=== PATIENT | male | born 1940 | race Caucasian/White ===

== ENCOUNTER 2021-01-27 09:48 | Observation (INO) ==
--- NOTE | 2021-01-02 14:41 | PAT Medication Instructions ---
Medication Instructions Date of Service January 02, 2021 Home Medications acetaminophen [Tylenol Extra Strength] 1,000 mg PO Q6H PRN ascorbic acid (vitamin C) 500 mg PO QAM atorvastatin 20 mg PO QAM calcium carbonate-vit D3-min [Calcium 600 + Minerals] 1 tab PO QAM esomeprazole magnesium [Nexium] 40 mg PO QPM finasteride 5 mg PO QAM lactobacillus combination no.4 [Probiotic] 3,000 mmu cells PO QPM lisinopril 5 mg PO QAM meloxicam 15 mg PO QAM metformin 1,000 mg PO BID multivitamin 1 tab PO QAM omega 9-exs-ikv-fish oil [Fish Oil] 1 cap PO QAM tamsulosin 0.4 mg PO BID ASK your surgeon for instructions meloxicam 15 mg PO QAM STOP taking 2 weeks before surgery (or as soon as possible if surgery is within 2 weeks) omega 2-ukt-src-fish oil [Fish Oil] 1 cap PO QAM DO NOT take the morning of surgery ascorbic acid (vitamin C) 500 mg PO QAM calcium carbonate-vit D3-min [Calcium 600 + Minerals] 1 tab PO QAM lisinopril 5 mg PO QAM metformin 1,000 mg PO BID multivitamin 1 tab PO QAM Take morning of surgery With a small sip of water, OTHERWISE NOTHING TO EAT OR DRINK AFTER MIDNIGHT: acetaminophen [Tylenol Extra Strength] 1,000 mg PO Q6H PRN (okay to take up to 4 hours prior to surgery if needed) atorvastatin 20 mg PO QAM finasteride 5 mg PO QAM tamsulosin 0.4 mg PO BID Take evening before surgery acetaminophen [Tylenol Extra Strength] 1,000 mg PO Q6H PRN (if needed) esomeprazole magnesium [Nexium] 40 mg PO QPM lactobacillus combination no.4 [Probiotic] 3,000 mmu cells PO QPM metformin 1,000 mg PO BID tamsulosin 0.4 mg PO BID Other Notes If you have any questions please call us at [phone] or [phone] or [phone] or [phone]
--- NOTE | 2021-01-03 14:51 | Anesthesiology Consultation ---
Date of Service January 03, 2021 Assessment & Plan (1) Encounter for pre-operative examination: Chart Review Chart Review: Acceptable Risk for Surgery (pending PCP clearance and preop Covid testing results ) and Patient seen in Pre Admission Testing Awaiting PCP clearance 01/05/21 - Check BSG AM DOS Per PAT appt on 01/03/21, pt resides in [facility]. Travels to [facility] for medical appts. Wears mask, uses good hand hygiene and socially distances. No known Covid positive contacts or Covid related symptoms. Pt denies any Covid infection in the past 90 days. Preop Covid testing scheduled 01/24/21 at [facility]= will await results. Educated on importance of self quarantining, social distancing and wearing mask in public both for the patient after Covid testing done. Pt fully vaccinated (09/10/20 and 10/08/20). Last seen by cardio 12/11/19= history of previous catheterization March 2018. Had been doing well from health standpoint but recently was sitting at dinner table and suddenly passed out. Denies any chest pain/pressure/heaviness/tightness. Carotid Doppler subsequently performed at hospital on 12/08/2019negative for plaquing/stenosis. Recent EKG showed sinus rhythm within normal limits. Patient on Metformin for diabetesno indication of hypoglycemia. 2-week ZIO monitor and echocardiogram ordered. Consider EEG in the future. Phone note by cardiology 01/05/2020 = per Dr. Estrada-aubrey function normal. No changes. ZIOno evidence of rhythm problems which would cause passing out. Would like him to have a EEG to rule seizure disorder. However does not want to have EEG at this time. He will call us back if he changes his mind. (Pt has had no episodes of syncope since 11/2019.) (Next routine follow up with cardio January 2021) Teaching & Discussion Pre-Anesthesia Teaching/Discussion Notes: Instructed NPO after midnight before surgery,except medications with 15 cc of water. Medication instructions provided according to the PAT guidelines. History Surgery Operation Date: 01/27/21 09:15 Proposed Procedures p Left Total Knee Arthroplasty - Jeremias Clinton DO Height/Weight Height: 5 ft 11 in Weight: 87.8 kg Allergies Allergy/AdvReac Type Severity Reaction Status Date / Time tramadol AdvReac Unknown BODY SHAKES Verified 01/02/21 10:13 Medications Home Medications Medication Instructions Recorded Confirmed Last Taken acetaminophen [Tylenol Extra 1,000 mg PO Q6H PRN 01/02/21 01/02/21 Unknown Strength] ascorbic acid (vitamin C) 500 mg PO QAM 01/02/21 01/02/21 Unknown atorvastatin 20 mg PO QAM 01/02/21 01/02/21 Unknown calcium carbonate-vit D3-min 1 tab PO QAM 01/02/21 01/02/21 Unknown [Calcium 600 + Minerals] esomeprazole magnesium [Nexium] 40 mg PO QPM 01/02/21 01/02/21 Unknown finasteride 5 mg PO QAM 01/02/21 01/02/21 Unknown lactobacillus combination no.4 3,000 mmu cells PO QPM 01/02/21 01/02/21 Unknown [Probiotic] lisinopril 5 mg PO QAM 01/02/21 01/02/21 Unknown meloxicam 15 mg PO QAM 01/02/21 01/02/21 Unknown metformin 1,000 mg PO BID 01/02/21 01/02/21 Unknown multivitamin 1 tab PO QAM 01/02/21 01/02/21 Unknown omega 3-lyw-sow-fish oil [Fish Oil] 1 cap PO QAM 01/02/21 01/02/21 Unknown tamsulosin 0.4 mg PO BID 01/02/21 01/02/21 Unknown Past Medical History Medical History (Updated 01/04/21 @ 10:38 by Laine Cosme PA-C) Anxiety Arthritis CAD (coronary artery disease) 50-60% diffuse disease LAD Cardiac murmur HX 40-50 YRS AGO Per patient- murmur resolved. No significant murmur noted on 01/03/21 PAT exam Depression Diabetes mellitus, type 2 Glucose well controlled Enlarged prostate GERD (gastroesophageal reflux disease) Well controlled and stable Hiatal hernia Hyperlipidemia Hypertension Lyme disease DX'D 3 YRS AGO-TREATED AT THE TIME- HAD ASSOCIATED BELLS PALSY GETS OCC FATIGUE Short-term memory loss SOB (shortness of breath) on exertion Stroke 5-6 YRS AGO-NUMBNESS LEFT SIDE-WEAKNESS REMAINS,SHORT TERM MEMORY LOSS Exercise / Class Metabolic Activity III < 4 Walking/Shop/Light housework (ONE FLIGHT OF STAIRS - NO CHEST PAIN, MILD SOB) Past Family History Family History Mother Family history of esophageal cancer Past Surgical History Surgical History (Updated 01/04/21 @ 14:20 by Laine Cosme PA-C) History of appendectomy History of back surgery NO METAL History of cardiac cath 2017 [facility]-DR LEO YING-NO STENTS History of carpal tunnel release R/L History of colonoscopy History of esophagogastroduodenoscopy (EGD) History of total shoulder replacement RIGHT Past Anesthesia History No Hx of Anesthesia Complications and No Family Hx of Anesthesia Complications History of PONV No Hx of PONV and No Hx of Motion Sickness Social History Smoking Status: Former smoker Do You Dip or Chew Tobacco: No Smoking End Date: QUIT 30 YRS AGO Hx Alcohol Use: No Hx Substance Use: No Review of Systems Chronic cough and wheezing- ongoing- usually in the morning stable. VAZQUEZ- chronic/stable Hx of snoring and witnessed apnea- pt refuses sleep study Patient denies chest pain, shortness of breath, palpitations. No hx of seizures, [place]. No hx of blood clots or blood transfusions Physical Exam Vital Signs VITALS BP 145/71 P 72 TEMP 97.9 SP02 96% RESP 16 Constitutional no acute distress ENMT Mouth: no TMJ clicking Thyromental Distance: > or= 3.5 Finger Breadths (3.5) Mallampati Class: II Missing molars Pernmanent bottom front bridge. Neck + limited neck extension (significant ) Respiratory normal respiratory effort; no respiratory distress Auscultation: lungs clear to auscultation bilaterally; no wheezes Cardiovascular Rate/Rhythm: regular rate and regular rhythm Heart Sounds: no murmur Vessels: no carotid bruit Musculoskeletal Spine: + pain with cervical ROM (mild to moderate ) Extremities: extremities normal to inspection Psychiatric Orientation: alert Lab Results Anesthesia Preop Results Results Anesthesia Widget: WBC 7.72 K/uL (4.8-10.8) 01/03/21 Hgb 13.3 g/dL (14.0-18.0) L 01/03/21 Hct 38.0 % (42-52) L 01/03/21 Plt 196 K/uL (130-400) 01/03/21 Na 139 mmol/L (136-145) 01/03/21 K 4.3 mmol/L (3.5-5.1) 01/03/21 Cl 107 mmol/L (98-107) 01/03/21 CO2 26 mmol/L (21-32) 01/03/21 BUN 23 mg/dl (7-18) H 01/03/21 Creat 1.17 mg/dl (0.6-1.4) 01/03/21 Glucose Level 116 mg/dl (70-99) H 01/03/21 PT 10.3 Seconds (9.0-12.0) 01/03/21 PTT 26.5 Seconds (21.0-31.0) 01/03/21 INR 1.0 (0.9-1.1) 01/03/21 HA1c 6.6 % (4.5-5.6) H 01/03/21 Urine Color Yellow 01/03/21 Urine Appearance Clear (Clear) 01/03/21 Urine pH 5.0 (4.5-7.5) 01/03/21 Urine Specific [place] 1.012 (1.000-1.030) 01/03/21 Urine Protein Negative (Negative) 01/03/21 Urine Glucose (UA) Negative (Negative) 01/03/21 Urine Ketones Negative (Negative) 01/03/21 Urine Blood Negative (Negative) 01/03/21 Urine Nitrite Negative (Negative) 01/03/21 Urine Bilirubin Negative (Negative) 01/03/21 Urine Urobilinogen Negative (Negative) 01/03/21 Urine Leukocyte Esterase Negative (Negative) 01/03/21 Blood Type O Positive 01/03/21 Antibody Screen NEGATIVE 01/03/21 Testing Electrocardiogram Date: 12/08/20 Findings: + NSR @ (72bpm) Incomplete RBBB. Chest X-Ray Date: 01/03/21 Findings: + NAD and + cardiomegaly (mild) Calcified nodules within the lungs are noted. This mild cardiomegaly without evidence for pulmonary edema. No consolidation to suggest pneumonia. Right shoulder arthroplasty is partially imaged. Echocardiogram Date: 11/30/19 EF: 68% Other Findings: + diastolic dysfunction (Grade 1) LV size normal with borderline increased wall thickness and LVH, early. There is hyperdynamic LVEF around 68%; however it was 56% on previous study. Dilated aortic root 4.3 cmcorrelate clinically. Normal pulmonary artery pressure. No pericardial effusion is seen. Cardiac Catheterization Date: 04/14/18 LM = patent right LAD = moderate 50-60% diffuse disease distal LAD Circumflex = minimal distal plaquing RCA = patent throughout LV: Normal, EF 60% Other Testing Zio Monitor 12/11/2019 = minimum heart rate 46 bpm, maximal heart rate 214 bpm, and average heart rate of 75 bpm. Predominant underlying rhythm was sinus rhythm. 52 supraventricular tachycardia runs occurred, the run with the fastest interval lasting 1 hour and 24 minutes with a max rate of 214 bpm (average 129 bpm); the run with the fastest interval was also the longest. Some episodes of supraventricular tachycardia may be possible atrial tachycardia with rare variable block, isolated SVEs were rare (<1.0%), SVC couplets were rare (<1.0%), and SVE triplets were rare (<1.0%). Isolated VE's were rare (<1.0%), VE couplets were rare (<1.0%), and no VE triplets were present. Carotid Doppler 12/07/2019 = no plaque or stenosis
--- NOTE | 2021-01-26 14:14 | History & Physical Report ---
Date of Service January 26, 2021 Assessment & Plan (1) Osteoarthritis of left knee: Schedule a Left TKA for 01.27.21. All potential risks, benefits, complications, alternatives, and rehab have been discussed with the patient and he wishes to proceed. Plan for ASA 81 mg BID x 4 wks for post op DVT prophylaxis. History of Present Illness Chief Complaint: left knee pain Primary Care Provider: Ramiro Chatman This is a patient with chronic left knee pain that has been treated for many years as knee osteoarthritis. He has failed conservative management and has chronic, persistent pain in the knee. He is now being set up for surgical management. Allergies Allergy/AdvReac Type Severity Reaction Status Date / Time tramadol AdvReac Unknown BODY SHAKES Verified 01/02/21 10:13 Home Medications Medication Instructions Recorded Confirmed Type acetaminophen [Tylenol Extra 1,000 mg PO Q6H PRN 01/02/21 01/02/21 History Strength] ascorbic acid (vitamin C) 500 mg PO QAM 01/02/21 01/02/21 History atorvastatin 20 mg PO QAM 01/02/21 01/02/21 History calcium carbonate-vit D3-min 1 tab PO QAM 01/02/21 01/02/21 History [Calcium 600 + Minerals] esomeprazole magnesium [Nexium] 40 mg PO QPM 01/02/21 01/02/21 History finasteride 5 mg PO QAM 01/02/21 01/02/21 History lactobacillus combination no.4 3,000 mmu cells PO QPM 01/02/21 01/02/21 History [Probiotic] lisinopril 5 mg PO QAM 01/02/21 01/02/21 History meloxicam 15 mg PO QAM 01/02/21 01/02/21 History metformin 1,000 mg PO BID 01/02/21 01/02/21 History multivitamin 1 tab PO QAM 01/02/21 01/02/21 History omega 0-ikz-ypu-fish oil [Fish Oil] 1 cap PO QAM 01/02/21 01/02/21 History tamsulosin 0.4 mg PO BID 01/02/21 01/02/21 History Past Med/Surg History Medical History (Updated 01/26/21 @ 14:09 by Trey Gutiérrez PA-C) Anxiety Arthritis CAD (coronary artery disease) 50-60% diffuse disease LAD Cardiac murmur HX 40-50 YRS AGO Per patient- murmur resolved. No significant murmur noted on 01/03/21 PAT exam Depression Diabetes mellitus, type 2 Glucose well controlled Enlarged prostate GERD (gastroesophageal reflux disease) Well controlled and stable Hiatal hernia Hyperlipidemia Hypertension Lyme disease DX'D 3 YRS AGO-TREATED AT THE TIME- HAD ASSOCIATED BELLS PALSY GETS OCC FATIGUE Short-term memory loss SOB (shortness of breath) on exertion Stroke 5-6 YRS AGO-NUMBNESS LEFT SIDE-WEAKNESS REMAINS,SHORT TERM MEMORY LOSS Surgical History (Updated 01/04/21 @ 14:20 by Laine Cosme PA-C) History of appendectomy History of back surgery NO METAL History of cardiac cath [address] [place] [address]-DR LEO YING-NO STENTS History of carpal tunnel release R/L History of colonoscopy History of esophagogastroduodenoscopy (EGD) History of total shoulder replacement RIGHT Family History Mother Family history of esophageal cancer Social History (Updated 01/02/21 @ 10:50 by Aga Barrera RN) Smoking Status: Former smoker Second Hand Exposure: Yes (FATHER SMOKED); Hx Alcohol Use: No Hx Substance Use: No Preferred Language: Tamazight Communication Ability: Effective Clinical Partner Required: No Beliefs That Will Affect Care: None Current Living Situation: Spouse current occupational status: retired Feels Safe at Home: Yes Assistive Devices: Cane, Glasses and Hearing Aid - Bilateral Physical Exam Constitutional: well developed and well nourished; no acute distress ENMT: external ear and nose normal, oropharynx normal Neck: trachea midline, no thyromegaly Respiratory: normal respiratory effort, lungs clear to auscultation Cardiovascular: Rate/Rhythm: regular rate and regular rhythm Gastrointestinal (Abdomen): normal bowel sounds, soft, nontender, no hepatosplenomegaly Musculoskeletal: Knee: + knee ROM with crepitation (left), + joint line tenderness (left medial/lateral joint line) and + Vasyl's sign positive (left); no skin erythema, no ecchymosis, no valgus laxity and no varus laxity Skin: no rashes, warm and dry Trauma: no evidence of skin trauma Neurologic: normal touch/pain/proprioception Psychiatric: A+Ox3, euthymic affect Speech: normal rate/rhythm/volume of speech Lymphatic: no cervical or axillary lymphadenopathy
[~2021-01-27 09:48] MED LIST: ACETAMINOPHEN 500 MG TAB PO SCH; BUPIVACAINE 0.5 % 5 MG/1 ML PF 10ML VIAL ONE; CeleBREX 200 MG CAP PO SCH; EPINEPHrine INJ 1 MG/ML AMP ONE; FAMOTIDINE 20 MG TAB PO SCH; GABAPENTIN 300 MG CAP PO SCH; LR 500ML BOLUS, THEN 15ML/HR IV SCH; METOCLOPRAMIDE HCL 10 MG TABLET PO SCH; ROPIVACAINE 0.5% 5 MG/ML 30 ML VIAL ONE; ROPIVACAINE 0.5% HCL/PF 150 MG, BUPIVACAINE 0.75% MPF 20 ML, EPINEPHrine 30MG/30ML (OR ... INFIL SCH; TRANEXAMIC ACID 1,000 MG **IV Intra-op IV SCH; TRANEXAMIC ACID 1,000 MG **IV Pre-op IV SCH; ceFAZolin 2000MG 2,000 MG/15 ML SYR IV SCH; oxyCODONE HCL 10 MG TABCR (OxyCONTIN) PO SCH
--- NOTE | 2021-01-27 12:15 | History & Physical Bridge Note ---
Date of Service January 27, 2021 History & Physical Bridge Note I have examined the patient, reviewed the History & Physical and in the interval since the performance of the History & Physical I have noted the following changes of clinical significance: no changes noted
[2021-01-27] MEDS ORDERED: fentaNYL citrate 100 MCG/2 ML VIAL ONE (13:17)
[2021-01-27] MEDS ORDERED: MIDAZOLAM HCL 1 MG/ML 2ML VIAL ONE (13:17)
[2021-01-27] MEDS ORDERED: BUPIVACAINE 0.25% 30 ML VIAL ONE (13:22)
[2021-01-27] MEDS ORDERED: KETAMINE 50 MG/5 ML SYRINGE ONE (13:38)
[2021-01-27] MEDS ORDERED: GLYCOPYRROLATE 0.2 MG/ML VIAL ONE (13:39)
[2021-01-27] MEDS ORDERED: ORTHO JOINT ANESTHETIC ONE (13:39)
[2021-01-27] MEDS ORDERED: ONDANSETRON INJ 2 MG/ML 2 ML VIAL ONE ×2 (13:39→14:31)
[2021-01-27] MEDS ORDERED: LIDOCAINE 2% 2 ML VIAL/AMP(20MG/ML) INFIL ONE (13:39)
[2021-01-27] MEDS ORDERED: DEXAMETHASONE SOD INJ 4 MG/ML VIAL ONE (13:39)
[2021-01-27] MEDS ORDERED: PROPOFOL IV EMULSION 10 MG/ML 20 ML VIAL IV ONE (13:39)
[2021-01-27] MEDS ORDERED: ONDANSETRON INJ 2 MG/ML 2 ML VIAL IV PRN ×2 (14:23→18:22)
[2021-01-27] MEDS ORDERED: ATROPINE SULFATE 0.1 MG/ML 10ML SYR IV PRN (14:23)
[2021-01-27] MEDS ORDERED: fentaNYL citrate 100 MCG/2 ML VIAL IV PRN (14:23)
[2021-01-27] MEDS ORDERED: ePHEDrine sulfate 50 MG/ML AMP IV PRN (14:23)
--- NOTE | 2021-01-27 16:17 | Post Operative Brief Note ---
Immediate Post Op Note v1 Date of Surgery January 27, 2021 Pre & Post Diagnosis Operation Date: 01/27/21 11:55 Pre-Op Diagnosis: Osteoarthritis Left Knee, left knee degenerative joint disease, left knee pain Post-Op Diagnosis: Osteoarthritis Left Knee, left knee degenerative joint disease, left knee pain I identified the patient and participated in the time-out.: Yes Procedure Operation Date: 01/27/21 11:55 Actual Procedures p Left Total Knee cemented arthroplasty with Zuñiga & Nephew size 7 Oxinium fem oral component, tibial baseplate, 35 mm patella and a posterior stabilized 10 mm polyethylene insert (Left) - Jeremias Clinton DO Surgeon Jeremias Clinton DO Threshing Operator Trey Gutiérrez PA-C Estimated Blood Loss 5 Findings Consistent with Post-Op Diagnosis Specimens Bone and tissue left knee Drains Hemovac Drain (Hemovac x2) Anesthesia Type Spinal MAC Complications none Disposition Accompanied Patient To Recovery: No Disposition: Recovery Room
--- NOTE | 2021-01-27 17:14 | Anesthesiology Progress Note ---
Date of Service January 27, 2021 Anesthesia Post Procedure Vital Signs Vital Signs: Temp Pulse Pulse Resp BP Pulse Ox 01/27/21 17:10 63 12 127/69 97 01/27/21 17:00 64 13 142/75 H 95 01/27/21 16:52 36.1 C L 74 10 L 132/66 95 01/27/21 10:38 37.0 C 84 18 166/92 H 99 Transfer of Care Handoff Completed per policy Notes Mental Status: alert / awake / arousable and participated in evaluation Nausea / Vomiting: adequately controlled Pain: adequately controlled Airway Patency, RR, SpO2: stable & adequate BP & HR: stable & adequate Hydration State: stable & adequate Neuraxial Anesthesia: was administered and sensory block is resolving Anesthetic Complications: no major complications apparent and Pt Satisfied with anesthetic care
--- NOTE | 2021-01-27 17:54 | XRay Report ---
LEFT KNEE 2 VIEWS History: Left total knee arthroplasty. Degenerative arthritis. Postop. FINDINGS: The patient is status post a left total knee arthroplasty. The hardware is intact. No fract ure or dislocation. Skin kimberly and surgical drains are in place. IMPRESSION: Left total knee arthroplasty. No evidence for hardware complication. ACT 112: Negative or not required by law. Electronically signed by: Ángel Kinney M.D. 01/27/2021 5:53 PM
--- NOTE | 2021-01-27 18:03 | Operative Report (OR) ---
PREOPERATIVE DIAGNOSES: 1. Left knee osteoarthritis. 2. Left knee degenerative joint disease. 3. Left knee pain. POSTOPERATIVE DIAGNOSES: 1. Left knee osteoarthritis. 2. Left knee degenerative joint disease. 3. Left knee pain. PROCEDURE: Left total knee arthroplasty using a Zuñiga and Nephew MRI matched Oxinium femoral component, size 7. A size 6 tibial baseplate, 35 mm patella and a 10 mm posterior stabilized polyethylene. SURGEON: Jeremias Clinton DO. COLLECT ON DELIVERY CLERK: Trey Gutiérrez PA-C, who was present for patient positioning, sterile prep and drape, management of retractors and instruments. He was present through the critical portions of the case including wound closure, application of sterile dressing and transport of the patient to recovery. ANESTHESIA: Spinal regional with intra-articular local. SPECIMENS: Bone and tissue, left knee. DRAINS: Hemovac x2. COMPLICATIONS: None. BLOOD LOSS: 5 mL. PERTINENT HISTORY: This is an 80-year-old gentleman who has had chronic progressive and worsening left knee pain and deformity over the last 2 to 3 years. He has attempted and failed conservative management including physician- directed home exercises, physical therapy, shoe wear modification, anti- inflammatories, rest, modification of activities, observation, steroid injections, viscosupplementation and use of a brace and an assistive device. He has failed all measures. Radiographs demonstrate end-stage degenerative arthritis with [id number] arthropathy of the medial compartment with marginal osteophytes, subchondral sclerosis, and subchondral bone cyst formation. He has slight varus deformity. The patient was scheduled for surgery as indicated. All potential risks, benefits, alternatives, complications, alternatives, rehab potential for incomplete relief of symptoms, need for further surgery, DVT, PE, , persistent pain, swelling, scarring, weakness, neurovascular injury, wound complications, hardware failure, nonunion, malunion, bone fracture were discussed with the patient. The patient decided to proceed with the procedure as indicated. PROCEDURE: The patient was taken to the Operative Suite and placed supine on the operating table after spinal epidural was initiated. Next, tourniquet was placed high on the left thigh over cast padding and the patient was sedated. The left lower extremity was then sterilely prepped and draped in the usual fashion. It was elevated and exsanguinated with an Esmarch bandage and tourniquet inflated to 350 mmHg. Next, a 10-blade scalpel incision was made along the anterior midline of the left knee with incision deep through the subcutaneous tissue. Meticulous hemostasis was utilized with electrocautery. Full thickness skin flaps were developed both medially and laterally and 10-blade scalpel was used to make a median parapatellar incision in the extensor. The patella was everted and soft tissue releases were performed. The medial collateral was noted to be slightly tight so this was partially released using pie-crusting technique and the Roth elevator was placed from the posterior aspect of the capsule releasing any contracture. Next, the patella was everted and resurfaced using sagittal saw and orthogonal cuts. After caliper measured 25 mm, residual patella was approximately 15 mm and 35 mm button trial was placed and then drilled. Next, the appropriate retractors were placed and the femoral patient matched cutting block was pinned to the distal aspect of the femur. The distal femoral cut was made and pinned with pins and the distal femoral cutting guide was removed. The 4-in-1 cutting block was then pinned in place and anterior, posterior, anterior chamfer, and posterior chamfer cuts were made. Block and bone fragments were then removed followed by exposure of the proximal tibia. Sharp Hohmann was used to place just posterior to the tibia to protract it. Medial and lateral sharp Hohmann's were placed to protect the soft tissue and the tibial cutting block was then pinned in place. Tibial alignment anne was utilized to confirm alignment and the proximal tibia was then cut made with sagittal saw. Fragment was removed. The Size 6 tibial trial was pinned in place and circumferential proximal release was performed with electrocautery around the proximal tibia. Next, the femoral trial was placed within appropriate medial and lateral alignment and then the cutting block was then put into place. It was reamed and box cut was performed. Excess debris was removed from the femoral notch. The insert was placed into the distal aspect of the femur. Trial poly Size 10 mm was placed in the proximal tibia. The knee was reduced. Trial poly Size 35 mm was placed in the patella. The knee was reduced. Excellent alignment and range of motion was achieved with correction of the genu varum and flexion contracture was achieved. Next, all components were removed. The Orthomix was injected into the posterior capsule and anterior aspect of the capsule. Next, the wound was lavaged with pulsatile lavage and all surfaces were suctioned and dried. Palacos-G cement was placed in the distal femur, proximal tibia, patella, and then a small amount was placed in the canal of the tibia. All implants were impacted into place in a stable fashion. Excess cement was removed from the joint. The patellar button was cemented and clamped in place. After sufficient drying time elapsed a 10-Luxembourgish double lumen Hemovac drain was placed in the anterolateral aspect of the knee. The extensor mechanism was closed using interrupted #1 Vicryl. The dermis was closed using buried interrupted 2-0 Vicryl. The skin was closed with skin kimberly. Sterile compressive dressing from the toes to the groin was applied. The tourniquet was released. The patient was awakened and taken to the Recovery Room in stable condition. Job ID: [id number] [email or web address]
[2021-01-27] MEDS ORDERED: METOCLOPRAMIDE HCL INJ 5 MG/ML 2 ML VIAL IV PRN (18:22)
[2021-01-27] MEDS ORDERED: HYDROmorphone INJ 0.5 MG/0.5 ML SYR IV PRN (18:22)
[2021-01-27] MEDS ORDERED: oxyCODONE HCL IR 5 MG TAB (IMMEDIATE RELEASE) PO PRN (18:22)
[2021-01-27] MEDS ORDERED: ALUMINUM/MAGNESIUM SUSP 30 ML UDC PO PRN (18:22)
[2021-01-27] MEDS ORDERED: diphenhydrAMINE Capsule 25 MG CAP PO PRN (18:22)
[2021-01-27] MEDS ORDERED: MAGNESIUM HYDROXIDE SUSP 30 ML UDC PO PRN (18:22)
[2021-01-27] MEDS ORDERED: bisacodyL 10 MG SUPP PR PRN (18:22)
[2021-01-27] MEDS ORDERED: NALOXONE HCL 0.4 MG/1 ML VIAL/CARP IV PRN (18:22)
[2021-01-27] MEDS ORDERED: KETOROLAC TROMETHAMINE 15 MG/ML VIAL IV PRN (18:22)
[2021-01-27] MEDS: SODIUM CHLORIDE 0.9% 1000ML 1,000 ML IV SCH (18:44)
[2021-01-27] MEDS ORDERED: GLUCAGON FOR INJ 1 MG VIAL SQ PRN (19:33)
[2021-01-27] MEDS ORDERED: GLUCOSE 40% GEL 15 GM TUBE PO PRN (19:33)
[2021-01-27] MEDS ORDERED: CARBOHYDRATES FOR HYPOGLYCEMIA PO PRN (19:33)
[2021-01-27] MEDS ORDERED: DEXTROSE 50% 50 ML SYRINGE IV PRN (19:33)
[2021-01-27] MEDS ORDERED: GLUCOSE 10 TABS/TUBE PO PRN (19:33)
[2021-01-27] MEDS: TAMSULOSIN HCL 0.4 MG CAP PO SCH (21:24)
[2021-01-27] MEDS: SENNA 8.6 MG TAB PO SCH (21:24)
[2021-01-27] MEDS: DOCUSATE SODIUM 100 MG CAP PO SCH (21:24)
[2021-01-27] MEDS: PANTOprazole 40 MG TAB PO SCH (21:25)
[2021-01-27] MEDS: ASPIRIN 81 MG ECTAB PO SCH (21:25)
[2021-01-27] MEDS: ACETAMINOPHEN 500 MG TAB PO SCH (21:25)
[2021-01-27] MEDS: ADVANCED PROBIOTIC 1250 MG CAPSULE PO SCH (21:25)
[2021-01-27] MEDS: INSULIN ASPART 100 UNITS/ML 3 ML PEN SC SCH (21:26)
[2021-01-27] MEDS: ceFAZolin 2000MG 2,000 MG/15 ML SYR IV SCH (21:41)
[2021-01-28] MEDS: SODIUM CHLORIDE 0.9% 1000ML 1,000 ML IV SCH (04:56)
[2021-01-28] MEDS: ceFAZolin 2000MG 2,000 MG/15 ML SYR IV SCH (05:17)
[2021-01-28] MEDS: ACETAMINOPHEN 500 MG TAB PO SCH ×3 (05:18→21:29)
[2021-01-28 06:02] LABS: Hematocrit (blood only) 32.4 % (42-52); Hemoglobin 11.6 g/dL (14.0-18.0); Mean Corpuscular Hemoglobin 34.4 pg (25-34); Mean Corpuscular Hgb Conc 35.8 g/dL (32-36); Mean Corpuscular Volume 96.1 fL (80-100); Mean Platelet Volume 10.3 fL (7.4-10.4); Platelet Count 203 K/uL (130-400); RDW Coefficient of Variation 11.9 % (11.5-14.5); RDW Standard Deviation 41.8 fL (36.4-46.3); Red Blood Count 3.37 M/uL (4.7-6.1); White Blood Count 10.92 K/uL (4.8-10.8)
[2021-01-28 06:24] LABS: BUN Creatinine Ratio 18.6 (10-20); Calcium 8.2 mg/dl (8.5-10.1); Creatinine Clr Calc Pharmacy 41.6 ml/min; Est GFR (African American) 49.8 ml/min; Potassium 4.7 mmol/L (3.5-5.1)
--- NOTE | 2021-01-28 07:54 | Hospitalist Consultation ---
Date of Consultation January 28, 2021 Assessment & Plan (1) Elevated serum creatinine: (2) Osteoarthritis of left knee: POD1 s/p LEFT TKA Dr Clinton on 01/27. EBL WBC 10.9k but steroids operatively Hgb/hct 11.6/32.4 with KAREN output 325cc and currently needs emptied again (11am, previously emptied ~6am) --acute blod loss anemia from surgery and dilutional from IVF Hold fish oil PT/OT/pain control/bowel regimen per primary service DVT Proph with ASA 81mg BID Cr up to 1.51 post-op --> held AM lisinopril. [place] little lightheaded and low BP. Ordered IVF NS @ 80cc/hr and can repeat BMP this afternoon. If improved and BP stable can make recs to hold metformin +/- lisinopril for tomorrow vs resum ing if stable and Cr resolved Discussed with PA from ortho and will repeat labs this afternoon and hope to get patient home as he had stay at local hotel and would like to go home. IF output increased, would keep overnight. (3) CAD (coronary artery disease): Follows [facility] Cardiology Cath 2018 with diffuse disesae as outlined in HPI Continue ASA (increased to BID for DVT proph as above), Atorvastatin 20mg daily. Not on BB but does have hx syncope No CP reported. EKG c CP (4) Diabetes mellitus, type 2: A1c well controlled Holding metformin while inpatient --> ordered to start in AM if Cr stable but will d/c while on ISS inpatient ISS while inpatient, tightened parameters as ordered by overnight team Continue to monitor BSGs See above regarding holding this for a day possible at d/c due to Cr 1.5 (5) Hypertension: Low -- likely post-op. Held AM lisinopril as above Monitor BP/Cr function on repeat BMP Resume when able (6) Stroke: Prior hx -- continues ASA/statin No focal deficits appreciated above baseline (7) GERD (gastroesophageal reflux disease): Continue PPI (8) Hyperlipidemia: continue statin (9) DVT prophylaxis: ASA 81mg BID, [place] Dispo: possible dc this evening vs tomorrow (more likely in AM given hemovac output) Thank you for allowing hospitalist to participate in the care of Mr. Chopra. Hospitalist service will follow along while inpatient. Please call with any questions/concerns or recommendations if planning for d/c this evening if drain output decreases. History of Present Illness Reason for Consultation: medical management Requesting Physician: Dr Clinton Attending Physician: Jeremias Clinton DO History of Present Illness 80yo male with PMHx significant for CAD (cardiac cath 2018 diffuse disease involving terminal/distal LAD 50-60%), DM II (non-insulin dependent), HTN, HLD, GERD, CVA (5-6 years ago with L sided numbness L side), OA presented for elective LEFT TOTAL KNEE with Dr. Clinton. Patient evaluated POD1 in room 306. Was slightly lightheaded this morning but improved since he has been up and around. Pain rated as "none". Hemovac with decent output and he notes this is determination for discharge today vs tomorrow as it has been emptied twice, most recently around 6AM and already almost needing emptied again. Discussed elevated creatinine and will hold his AM lisinopril 5mg and instructed to hold his metformin for tomorrow if plans for d/c this afternoon. Will discuss with Trey Gutiérrez as patient states he was in this morning and awaiting to hear back about d/c. Eating/drinking no issues. Did well with therapy. Hopeful for d/c this afternoon as stayed at local hotel. No fever, chills, chest pain, shortness of breath, abdominal pain, nausea, vomiting or dysuria at this time. Questions/concerns addressed at this time. Allergies Allergy/AdvReac Type Severity Reaction Status Date / Time tramadol AdvReac Mild BODY SHAKES Verified 01/27/21 10:33 Home Medications Medication Instructions Recorded Confirmed Type acetaminophen [Tylenol Extra 1,000 mg PO Q6H PRN 01/02/21 01/27/21 History Strength] ascorbic acid (vitamin C) 500 mg PO QAM 01/02/21 01/27/21 History atorvastatin 20 mg PO QAM 01/02/21 01/27/21 History calcium carbonate-vit D3-min 1 tab PO QAM 01/02/21 01/27/21 History [Calcium 600 + Minerals] esomeprazole magnesium [Nexium] 40 mg PO QPM 01/02/21 01/27/21 History finasteride 5 mg PO QAM 01/02/21 01/27/21 History lactobacillus combination no.4 3,000 mmu cells PO QPM 01/02/21 01/27/21 History [Probiotic] lisinopril 5 mg PO QAM 01/02/21 01/27/21 History meloxicam 15 mg PO QAM 01/02/21 01/27/21 History metformin 1,000 mg PO BID 01/02/21 01/27/21 History multivitamin 1 tab PO QAM 01/02/21 01/27/21 History omega 0-pmh-gor-fish oil [Fish Oil] 1 cap PO QAM 01/02/21 01/27/21 History tamsulosin 0.4 mg PO BID 01/02/21 01/27/21 History acetaminophen 1,000 mg PO Q8 #100 tab 01/28/21 Rx aspirin 81 mg PO BID #60 tab 01/28/21 Rx oxycodone 5 - 10 mg PO Q4H PRN #20 tab 01/28/21 Rx Patient History Medical History Anxiety Arthritis CAD (coronary artery disease) 50-60% diffuse disease LAD Cardiac murmur HX 40-50 YRS AGO Per patient- murmur resolved. No significant murmur noted on 01/03/21 PAT exam Depression Diabetes mellitus, type 2 Glucose well controlled Enlarged prostate GERD (gastroesophageal reflux disease) Well controlled and stable Hiatal hernia Hyperlipidemia Hypertension Lyme disease DX'D 3 YRS AGO-TREATED AT THE TIME- HAD ASSOCIATED BELLS PALSY GETS OCC FATIGUE Short-term memory loss SOB (shortness of breath) on exertion Stroke 5-6 YRS AGO-NUMBNESS LEFT SIDE-WEAKNESS REMAINS,SHORT TERM MEMORY LOSS Surgical History History of appendectomy History of back surgery NO METAL History of cardiac cath 2017 [facility]-DR LEO YING-NO STENTS History of carpal tunnel release R/L History of colonoscopy History of esophagogastroduodenoscopy (EGD) History of total shoulder replacement RIGHT Family History Mother Family history of esophageal cancer Social History Smoking Status: Former smoker Smoking End Date: QUIT 30 YRS AGO; Second Hand Exposure: Yes (FATHER SMOKED); Do You Dip or Chew Tobacco: No; Hx Alcohol Use: No Hx Substance Use: No Preferred Language: Slovenian Communication Ability: Effective Chief Of Surgery Required: No Beliefs That Will Affect Care: None Current Living Situation: Spouse current occupational status: retired Other Information That Helps Us Care for You: No Feels Safe at Home: Yes Safety Concerns: Feels Safe At This Time Assistive Devices: Walker Assistive Devices Comment: CANE PRN Review of Systems Review of Systems: All systems reviewed & are unremarkable except as noted in HPI & below Physical Exam Constitutional: well developed and well nourished; no acute distress Eyes: + anicteric sclerae and PERRL ENMT: external ear and nose normal, oropharynx normal Neck: trachea midline, no thyromegaly Respiratory: normal respiratory effort, lungs clear to auscultation Cardiovascular: Rate/Rhythm: regular rate and regular rhythm Vessels: no JVD Extremities: no calf tenderness and no edema Gastrointestinal (Abdomen): normal bowel sounds, soft, nontender, no hepatosplenomegaly Musculoskeletal: Knee: + surgical incision (Leonard bandage and dressing to L knee intact) and + surgical drain present (Hemovac drain 350 cc); no skin erythema and no ecchymosis Skin: warm, dry Neurologic: deep tendon reflexes 2+ bilaterally and moves all extremities Psychiatric: A+Ox3, euthymic affect Speech: normal rate/rhythm/volume of speech Lymphatic: no cervical or axillary lymphadenopathy Results & Data Results & Data ([facility]) Vital Signs (Past 12 Hours) Vital Signs Temp Pulse Resp BP Pulse Ox 01/28/21 07:34 36.5 C 89 20 108/66 93 01/28/21 05:15 94 01/28/21 02:27 36.4 C L 63 17 131/67 95 01/27/21 21:30 36.4 C L 60 16 152/74 H 98 01/27/21 20:05 36.4 C L 62 16 144/76 H 97 Laboratory Results 01/28/21 01/28/21 01/28/21 Range/Units 08:07 05:23 05:23 WBC 10.92 H (4.8-10.8) K/uL RBC 3.37 L (4.7-6.1) M/uL Hgb 11.6 L (14.0-18.0) g/dL Hct 32.4 L (42-52) % MCV 96.1 (80-100) fL MCH 34.4 H (25-34) pg MCHC 35.8 (32-36) g/dL RDW Std Deviation 41.8 (36.4-46.3) fL RDW Coeff of Adriana 11.9 (11.5-14.5) % Plt Count 203 (130-400) K/uL MPV 10.3 (7.4-10.4) fL Sodium 137 (136-145) mmol/L Potassium 4.7 (3.5-5.1) mmol/L Chloride 107 (98-107) mmol/L Carbon Dioxide 26 (21-32) mmol/L Anion Gap 4.0 (3-11) BUN 28 H (7-18) mg/dl Creatinine 1.51 H (0.6-1.4) mg/dl Est Cr Clr Drug Dosing 41.6 ml/min Est GFR ( Amer) 49.8 ml/min Est GFR (Non-Af Amer) 43.0 ml/min BUN/Creatinine Ratio 18.6 (10-20) Glucose 215 H (70-99) mg/dl POC Glucose 208 H (70-99) mg/dl Calcium 8.2 L (8.5-10.1) mg/dl 01/27/21 01/27/21 01/27/21 Range/Units 20:54 18:23 16:54 WBC (4.8-10.8) K/uL RBC (4.7-6.1) M/uL Hgb (14.0-18.0) g/dL Hct (42-52) % MCV (80-100) fL MCH (25-34) pg MCHC (32-36) g/dL RDW Std Deviation (36.4-46.3) fL RDW Coeff of Adriana (11.5-14.5) % Plt Count (130-400) K/uL MPV (7.4-10.4) fL Sodium (136-145) mmol/L Potassium (3.5-5.1) mmol/L Chloride (98-107) mmol/L Carbon Dioxide (21-32) mmol/L Anion Gap (3-11) BUN (7-18) mg/dl Creatinine (0.6-1.4) mg/dl Est Cr Clr Drug Dosing ml/min Est GFR ( Amer) ml/min Est GFR (Non-Af Amer) ml/min BUN/Creatinine Ratio (10-20) Glucose (70-99) mg/dl POC Glucose 234 H 179 H 145 H (70-99) mg/dl Calcium (8.5-10.1) mg/dl Diagnostic Findings Knee X-Ray 01/27/21 16:54 LEFT KNEE 2 VIEWS History: Left total knee arthroplasty. Degenerative arthritis. Postop. FINDINGS: The patient is status post a left total knee arthroplasty. The hardware is intact. No fracture or dislocation. Skin kimberly and surgical drains are in place. IMPRESSION: Left total knee arthroplasty. No evidence for hardware complication. ACT 112: Negative or not required by law. Electronically signed by: Ángel Kinney M.D. 01/27/2021 5:53 PM PG Care Time/CCT Total # of Minutes Spent Total Time Spent with Patient: Total time spent is greater than 50% in co ordination of care (as documented) at patient's floor/unit and/or counseling patient: Coding Level of Care Code 90300 Office/OBS Consult Lvl 3 Diagnoses Elevated serum creatinine R79.89 Osteoarthritis of left knee M17.12 CAD (coronary artery disease) I25.10 Diabetes mellitus, type 2 E11.9 Hypertension I10 Stroke I63.9 GERD (gastroesophageal reflux disease) K21.9 Hyperlipidemia E78.5 DVT prophylaxis Z29.9
--- NOTE | 2021-01-28 08:27 | Orthopedic Progress Note ---
Date of Service January 28, 2021 Assessment & Plan (1) Osteoarthritis of left knee: Postop day #1 status post left TKA. PT/OT DVT prophylaxisTED stockings and aspirin 81 mg twice daily We discussed the drainage from the Hemovac. He would like to go home today. So, we will leave the drain in until 1600 and plan for removal at that time and discharged later this evening. If the drainage increases significantly, he will stay another day. Discharge planningplan for home with home health over the next 2 weeks then transition to outpatient physical therapy. Admission and Anticipated Discharge Date Admission Date: January 27, 2021 Supervising Physician Co-Signing Physician Notes Patient seen and examined. Agree with RAVINDER Gutiérrez's note as above. Patient is doing extremely well after his knee replacement. Ambulating in the hallway and is able to do steps. However, unfortunately his Hemovac drain output remains high. It was just emptied this morning and the canister is already full. We will have to wait until his Hemovac drain output drops off prior to discharge. We will see how it trends throughout the day. Possible discharge later today versus tomorrow. Subjective Doing well. States he has some lateral knee pain when he was ambulating last night but otherwise he is pain-free. Denies chest pain, shortness of breath, lightheadedness. Physical Exam Constitutional: well developed and well nourished; no acute distress ENMT: external ear and nose normal, oropharynx normal Neck: trachea midline, no thyromegaly Respiratory: normal respiratory effort, lungs clear to auscultation Cardiovascular: Rate/Rhythm: regular rate and regular rhythm Gastrointestinal (Abdomen): normal bowel sounds, soft, nontender, no hepatosplenomegaly Musculoskeletal: Knee: + surgical incision (Leonard bandage in place left knee. Silverlon dressing in place.), + surgical drain present (His drain 325 cc) and + knee ROM with crepitation (left); no skin erythema and no ecchymosis Skin: no rashes, warm and dry Trauma: no evidence of skin trauma Neurologic: normal touch/pain/proprioception Psychiatric: A+Ox3, euthymic affect Speech: normal rate/rhythm/volume of speech Lymphatic: no cervical or axillary lymphadenopathy Results & Data ([facility]) Vital Signs (Past 12 Hours) Vital Signs Temp Pulse Resp BP Pulse Ox 01/28/21 07:34 36.5 C 89 20 108/66 93 01/28/21 05:15 94 01/28/21 02:27 36.4 C L 63 17 131/67 95 01/27/21 21:30 36.4 C L 60 16 152/74 H 98 Laboratory Results Laboratory Tests 01/28/21 01/28/21 05:23 05:23 Hgb 11.6 L Hct 32.4 L Creatinine 1.51 H
[2021-01-28] MEDS ORDERED: MULTIVITAMIN TAB PO SCH (09:00)
[2021-01-28] MEDS ORDERED: lisinopril 5 MG TAB PO SCH (09:00)
[2021-01-28] MEDS ORDERED: OMEGA-3 (PURIFIED FISH OIL) 1 GM CAP PO SCH (09:00)
[2021-01-28] MEDS: INSULIN ASPART 100 UNITS/ML 3 ML PEN SC SCH ×4 (09:02→21:33)
[2021-01-28] MEDS: MULTIVITAMIN TAB PO SCH (09:08)
[2021-01-28] MEDS: CALCIUM 600MG + VIT D 400 IU TAB PO SCH (09:08)
[2021-01-28] MEDS: ATORVASTATIN 20 MG TAB PO SCH (09:08)
[2021-01-28] MEDS: ASCORBIC ACID 500 MG TAB PO SCH (09:08)
[2021-01-28] MEDS: DOCUSATE SODIUM 100 MG CAP PO SCH ×2 (09:08→21:30)
[2021-01-28] MEDS: ASPIRIN 81 MG ECTAB PO SCH ×2 (09:08→21:30)
[2021-01-28] MEDS: FINASTERIDE 5 MG TAB PO SCH (09:08)
[2021-01-28] MEDS: TAMSULOSIN HCL 0.4 MG CAP PO SCH ×2 (09:08→21:29)
[2021-01-28] MEDS ORDERED: SODIUM CHLORIDE 0.9% 1000ML 1,000 ML IV SCH (09:45)
[2021-01-28 15:35] LABS: BUN Creatinine Ratio 19.4 (10-20); Calcium 8.3 mg/dl (8.5-10.1); Creatinine Clr Calc Pharmacy 39.5 ml/min; Est GFR (African American) 46.8 ml/min; Est GFR (Non-African American) 40.4 ml/min; Potassium 4.7 mmol/L (3.5-5.1)
[2021-01-28] MEDS ORDERED: INSULIN HUMAN NPH SC ONE (18:05)
[2021-01-28] MEDS ORDERED: CeleBREX 200 MG CAP PO SCH (21:00)
[2021-01-28] MEDS: SENNA 8.6 MG TAB PO SCH (21:29)
[2021-01-28] MEDS: ADVANCED PROBIOTIC 1250 MG CAPSULE PO SCH (21:30)
[2021-01-28] MEDS: PANTOprazole 40 MG TAB PO SCH (21:32)
[2021-01-29] MEDS: ACETAMINOPHEN 500 MG TAB PO SCH ×2 (05:45→13:20)
[2021-01-29 05:50] LABS: Hematocrit (blood only) 27.9 % (42-52); Hemoglobin 9.8 g/dL (14.0-18.0); Mean Corpuscular Hemoglobin 33.8 pg (25-34); Mean Corpuscular Hgb Conc 35.1 g/dL (32-36); Mean Corpuscular Volume 96.2 fL (80-100); Mean Platelet Volume 10.1 fL (7.4-10.4); Platelet Count 178 K/uL (130-400); RDW Coefficient of Variation 12.4 % (11.5-14.5); RDW Standard Deviation 43.1 fL (36.4-46.3); White Blood Count 9.14 K/uL (4.8-10.8)
[2021-01-29 06:23] LABS: BUN Creatinine Ratio 19.4 (10-20); Calcium 8.2 mg/dl (8.5-10.1); Creatinine Clr Calc Pharmacy 46.5 ml/min; Est GFR (African American) 57.1 ml/min; Est GFR (Non-African American) 49.2 ml/min; Potassium 4.3 mmol/L (3.5-5.1)
[2021-01-29] MEDS ORDERED: metFORMIN HCL 500 MG TAB PO SCH (08:00)
--- NOTE | 2021-01-29 08:04 | Orthopedic Progress Note ---
Date of Service January 29, 2021 Assessment & Plan (1) Osteoarthritis of left knee: Postop day #2 status post left TKA. PT/OT DVT prophylaxisTED stockings and aspirin 81 mg twice daily The Hemovac drainage has decreased. We will remove the Hemovac today. His creatinine has also improved today. Discharge planningplan for home with home health over the next 2 weeks then transition to outpatient physical therapy. Admission and Anticipated Discharge Date Admission Date: January 27, 2021 Supervising Physician Co-Signing Physician Notes Patient seen and examined. Agree with RAVINDER Gutiérrez's note as above. Patient currently complaining of right knee pain after a fairly intense therapy session, but is overall doing well. Hemovac drain output is decreased. Plan for discharge home today. Subjective Doing well. States he does not have any pain within the knee. He was ambulating well last evening. Denies chest pain, shortness of breath, lightheadedness. Physical Exam Constitutional: well developed and well nourished; no acute distress ENMT: external ear and nose normal, oropharynx normal Neck: trachea midline, no thyromegaly Respiratory: normal respiratory effort, lungs clear to auscultation Cardiovascular: Rate/Rhythm: regular rate and regular rhythm Gastrointestinal (Abdomen): normal bowel sounds, soft, nontender, no hepatosplenomegaly Musculoskeletal: Knee: + surgical incision (Leonard bandage in place left knee. Silverlon dressing in place.) and + surgical drain present (Drain has decreased. 75 cc at previous empty.); no skin erythema and no ecchymosis Skin: no rashes, warm and dry Trauma: no evidence of skin trauma Neurologic: normal touch/pain/proprioception Psychiatric: A+Ox3, euthymic affect Speech: normal rate/rhythm/volume of speech Lymphatic: no cervical or axillary lymphadenopathy Results & Data ([facility]) Vital Signs (Past 12 Hours) Vital Signs Temp Pulse Resp BP Pulse Ox 01/28/21 22:10 36.6 C 72 16 139/66 94 Laboratory Results Laboratory Tests 01/29/21 01/29/21 05:26 05:26 Hgb 9.8 L Hct 27.9 L Creatinine 1.35
--- NOTE | 2021-01-29 08:09 | Discharge Summary ---
Date of Service January 29, 2021 Admission HPI Per Admitting Provider This is a patient with chronic left knee pain that has been treated for many years as knee osteoarthritis. He has failed conservative management and has chronic, persistent pain in the knee. He is now being set up for surgical management. Principal Diagnosis Left knee osteoarthritis Discharge Exam Constitutional well developed and well nourished; no acute distress ENMT external ear and nose normal, oropharynx normal Neck trachea midline, no thyromegaly Respiratory normal respiratory effort, lungs clear to auscultation Cardiovascular Rate/Rhythm: regular rate and regular rhythm Gastrointestinal (Abdomen) normal bowel sounds, soft, nontender, no hepatosplenomegaly Musculoskeletal Knee: + surgical incision (Leonard bandage in place left knee. Silverlon dressing in place.) and + surgical drain present (Drain has decreased. 75 cc at previous empty.); no skin erythema and no ecchymosis Skin no rashes, warm and dry Trauma: no evidence of skin trauma Neurologic normal touch/pain/proprioception Psychiatric A+Ox3, euthymic affect Speech: normal rate/rhythm/volume of speech Lymphatic no cervical or axillary lymphadenopathy Discharge Data Allergies Allergy/AdvReac Type Severity Reaction Status Date / Time tramadol AdvReac Mild BODY SHAKES Verified 01/27/21 10:33 Consultations 01/24/21 11:48 Consult Hospitalist Routine Procedures Performed Operation Date: 01/27/21 11:55 Actual Procedures p Left Total Knee Arthroplasty(Left) - Jeremias Clinton DO Ordered Studies 01/27/21 05:00 US - OR guided needle placemen Routine Hospital Course (1) Osteoarthritis of left knee: The patient was admitted and underwent the noted procedure. On postop day #1, he was doing extremely well. However, his Hemovac drainage remained high. His creatinine was slightly elevated. His IV fluids were increased. And, on postop day #2, his creatinine had improved. His Hemovac drainage had also lessened over the evening and night. He was then discharged home on postop day #2. Postop day #2 status post left TKA. PT/OT DVT prophylaxisTED stockings and aspirin 81 mg twice daily The Hemovac drainage has decreased. We will remove the Hemovac today. His creatinine has also improved today. Discharge planningplan for home with home health over the next 2 weeks then transition to outpatient physical therapy. Total Time Total Time Spent Total Time Spent (In Minutes): 45 Total Time Includes: Examination of the Patient, Discharge Planning, Medication Reconciliation and Communication With Other Providers Discharge Plan Discharge Items Patient Disposition: Home - Home Health Services Reason For Visit: Osteoarthritis Left Knee Discharge Diagnosis: Left knee osteoarthritis Activity: Per Instructions section Weightbearing: Full weightbearing Non-emergency contact: Surgeon Call non-emergency contact if: your pain is not controlled, your pain is worsening and your temperature is above 101 Follow-up/Referrals: Ramiro Chatman M.D. [Primary Care Provider] - Diet: Regular Addtl Attending Provider Instructions: ACTIVITY RECOMMENDATIONS: SELF CARE INSTRUCTIONS AFTER TOTAL KNEE REPLACEMENT A. You may need to continue a physical therapy program after discharge from the hospital. There are several options available to you. Your doctor will assist you in selecting the best one for you. 1. An out-patient facility 3 times a week for therapy. 2. Home therapy for 1 to 2 weeks with outpatient therapy to follow. 3. Continue working on all exercises taught by physical therapy three times a day for 20 minutes on non-therapy days. Your goals should be to increase the bending of your knee to 90 degrees and beyond and to fully straighten your knee. Ice and elevate knee after exercise. B. Weight as tolerated with a walker or as instructed by your physician. C. It is okay to shower if minimal to no drainage from incision. No Baths. Do not soak wound. D. Make walking a part of your daily routine. Be up as much as comfortable with rest periods throughout the day. Rest with leg elevation is very important. Use the ice wrap frequently for the first 3-4 weeks. E. There are no restrictions on activities. You may ride in a car, shop, participate in monument carver and all social activities. F. Wear the long elastic stockings (JOSE hose) 20 hours a day for one month after surgery. They can be removed several times a day for laundering and when showering. G. Silverlon: You have a Silverlon dressing on the right knee incision. It will remain in place for 7 days from the day of your surgery. After 7 days, you may remove the dressing, just as you would remove a bandaid. You may shower with the Silverlon dressing in place. However, if you notice any water within the dressing, the dressing should be removed. You may cover the incision with a dry dressing once the silverlon is removed if there is any drainage. SPECIAL CARE INSTRUCTIONS: VERY IMPORTANT TO READ AND REVIEW A. Take Aspirin (blood thinning medications) as directed by your doctor. If on Coumadin, have a pro-time (blood test) drawn according to your doctor's instructions. This will tell the doctor how well the Coumadin is thinning your blood. B. There are a few signs you need to watch for after you are home. Call [facility] if you notice any of the followin. Increased severe knee pain. Some pain is expected especially when you exercise. 2. Increased swelling in your leg or knee; pain or swelling of the calf muscle in either lower leg. 3. Any redness or fluid drainage from the incision. 4. Shortness of breath or chest pain. 5. A Temperature of 101 degrees F or greater. C. Please call [facility] at if you have any concerns or questions about your operation or recovery. The doctor or his nurse will return your call promptly. D. You must take antibiotics before dental work, bladder, bowel or other surgery. Your doctor will provide you with a permanent care to carry describing this precaution. FOLLOW UP VISIT: If appointment is not already scheduled: Please call [facility] to make a follow-up appointment for 2 weeks after your surgery at . Pending Studies at Discharge: No Stand-Alone Forms: My [facility] [employer], Smoking Cessation Medications and DC Order Prescriptions: New acetaminophen 500 mg Tablet 1,000 mg PO Q8 Qty: 100 RF: 0 aspirin 81 mg Tablet,Delayed Release (Dr/Ec) 81 mg PO BID Qty: 60 RF: 0 oxycodone 5 mg Tablet 5 - 10 mg PO Q4H PRN (Reason: pain) Qty: 20 RF: 0 Continued multivitamin Tablet 1 tab PO QAM RF: 0 atorvastatin 20 mg Tablet 20 mg PO QAM RF: 0 meloxicam 15 mg Tablet 15 mg PO QAM RF: 0 ascorbic acid (vitamin C) 500 mg Tablet 500 mg PO QAM RF: 0 tamsulosin 0.4 mg Capsule 0.4 mg PO BID RF: 0 metformin 1,000 mg Tablet 1,000 mg PO BID RF: 0 esomeprazole magnesium [Nexium] 40 mg Capsule,Delayed Release(Dr/Ec) 40 mg PO QPM RF: 0 lisinopril 5 mg Tablet 5 mg PO QAM RF: 0 finasteride 5 mg Tablet 5 mg PO QAM RF: 0 Probiotic 3 billion cell Capsule 3,000 mmu cells PO QPM RF: 0 Calcium 600 + Minerals 600 mg calcium- 200 unit Tablet 1 tab PO QAM RF: 0 omega 4-wzt-opq-fish oil [Fish Oil] 1,200 (144-216) mg Capsule 1 cap PO QAM RF: 0 Discontinued acetaminophen [Tylenol Extra Strength] 500 mg Capsule 1,000 mg PO Q6H PRN (Reason: Pain) RF: 0 Discharge Orders: Discharge Order (Routine); Ordered 01/28/21 Ordered By: Trey Salcedo/Other Patient Handouts: High Blood Sugar (Hyperglycemia), Hypoglycemia (Low Blood Sugar) Admission Data Admit Date/Time: 01/27/21 17:22 Attending Provider: Jeremias Clinton Admit Provider: Jeremias Clinton Primary Care Provider: Ramiro Chatman Other Providers: [facility] ; Pal Russo
[2021-01-29] MEDS: CALCIUM 600MG + VIT D 400 IU TAB PO SCH (08:47)
[2021-01-29] MEDS: ATORVASTATIN 20 MG TAB PO SCH (08:47)
[2021-01-29] MEDS: MULTIVITAMIN TAB PO SCH (08:47)
[2021-01-29] MEDS: ASPIRIN 81 MG ECTAB PO SCH (08:47)
[2021-01-29] MEDS: TAMSULOSIN HCL 0.4 MG CAP PO SCH (08:47)
[2021-01-29] MEDS: FINASTERIDE 5 MG TAB PO SCH (08:47)
[2021-01-29] MEDS: DOCUSATE SODIUM 100 MG CAP PO SCH (08:47)
[2021-01-29] MEDS: ASCORBIC ACID 500 MG TAB PO SCH (08:47)
[2021-01-29] MEDS: INSULIN ASPART 100 UNITS/ML 3 ML PEN SC SCH ×2 (08:52→12:38)
--- NOTE | 2021-01-29 09:57 | Communication Note ---
Date of Service: January 29, 2021 Chart checked. Hgb 9.8 and Ramiro output decreased but he did get 1L IVF for elevated Cr and lisinopril held. Cr improved. Held AM lisinopril today and instructed to hod Metformin and then resume tomorrow. Given 25U NPH yesterday for elevated blood sugars with improvement -- likely secondary to steroids from surgery. Discussed with ortho PA and patient plans for d/c today.
== END 2021-01-29 13:56 | disposition home health service (06) ==
LOC: 3E 09:48 → ASU 09:48